=== PATIENT | female | born 1945 | race Caucasian/White ===

== ENCOUNTER → 2024-04-01 09:37 | Outpatient (REF) | payer MEDICARE, OTHER, SELFPAY ==
[2024-04-01 11:38] LABS: % Basophils 0.3 % (0-2); % Eosinophils 2.4 % (0-6); % Immature Granulocytes 0.2 % (0-0.5); % Lymphocytes 17.4 % (20.5-51.1); % Monocytes 9.9 % (1.7-9.3); % Neutrophils 69.8 % (42.2-75.2); Absolute Eosinophils 0.2 10^3/uL (0-0.7); Absolute Lymphocytes 1.1 10^3/uL (1.2-3.4); Absolute Monocytes 0.7 10^3/uL (0.1-0.6); Absolute Neutrophils 4.6 10^3/uL (1.4-6.5); Hematocrit 38.6 % (37.0-47.0); Hemoglobin 12.8 g/dL (12.0-16.0); Mean Corp Hgb Conc. 33.2 g/dL (33.0-37.0); Mean Corpuscular Hgb 30.4 pg (27.0-31.0); Mean Corpuscular Volume 91.7 fL (81.0-99.0); Mean Platelet Volume 10.8 fL (7.4-10.4); Nucleated Red Blood Cells % 0 %; Platelet Count 206 10^3/uL (130-400); Red Blood Cell Count 4.21 10^6/uL (4.20-5.40); Red Cell Dist. Width 12.8 % (11.5-14.5); White Blood Cell Count 6.5 10^3/uL (4.8-10.8)
[2024-04-01 12:07] LABS: ALT (SGPT) 23 U/L (0-35); AST (SGOT) 30 U/L (14-36); Albumin 4.6 g/dl (3.5-5.0); Alkaline Phosphatase 81 U/L (38-126); Blood Urea Nitrogen 33 mg/dl (7-17); Calcium 10.1 mg/dl (8.4-10.2); Carbon Dioxide 23 mmol/L (22-30); Chloride 102 mmol/L (98-107); Glucose 107 mg/dl (70-99); HDL Cholesterol 62 mg/dl; LDL Cholesterol, Calculated 91 mg/dl; Sodium 135 mmol/L (135-145); Total Bilirubin 0.8 mg/dl (0.2-1.3); Total Cholesterol 185 mg/dl (50-199); Total Protein 7.6 g/dl (6.3-8.2); Triglyceride 164 mg/dl (10-149); Very Low Density Lipoprotein 32 mg/dl (0-30)
[2024-04-01 12:21] LABS: Vitamin D, 25-OH*** 38.5 ng/mL (30-80)
[2024-04-02 09:24] LABS: Glycohemoglobin (HgbA1c) 5.6 % (4.0-5.6)
== END ==
LOC: HWLAB 09:37
PROVIDERS: ATTENDING PHYSICIAN Family Medicine
DX: E78.5 Hyperlipidemia, unspecified (principal); R73.01 Impaired fasting glucose; M81.0 Age-related osteoporosis without current pathological fracture; N18.31 Chronic kidney disease, stage 3a
CPT/HCPCS: 36415; 80053; 80061; 82306; 83036; 85025

== ENCOUNTER → 2025-01-23 12:22 | Outpatient (REF) | payer MEDICARE, OTHER, SELFPAY | LOC: HWRAD 12:22 | PROVIDERS: ATTENDING PHYSICIAN Nurse Practitioner Primary Care | DX: S20.212A Contusion of left front wall of thorax, initial encounter (principal); N64.89 Other specified disorders of breast | CPT/HCPCS: 71101 ==

== ENCOUNTER → 2025-07-24 10:17 | Outpatient (REF) | payer MEDICARE, OTHER, SELFPAY ==
[2025-07-24 12:22] LABS: Hematocrit 37.3 % (37.0-47.0); Hemoglobin 12.6 g/dL (12.0-16.0); Mean Corp Hgb Conc. 33.8 g/dL (33.0-37.0); Mean Corpuscular Volume 91.9 fL (81.0-99.0); Nucleated Red Blood Cells % 0 %; Platelet Count 254 10^3/uL (130-400); Red Cell Dist. Width 13.2 % (11.5-14.5)
[2025-07-24 12:36] LABS: ALT (SGPT) 22 U/L (0-35); AST (SGOT) 24 U/L (14-36); Albumin 4.3 g/dl (3.5-5.0); Alkaline Phosphatase 69 U/L (38-126); Blood Urea Nitrogen 29 mg/dl (7-17); Calcium 9.3 mg/dl (8.4-10.2); Carbon Dioxide 23 mmol/L (22-30); Chloride 105 mmol/L (98-107); Glucose 115 mg/dl (70-99); HDL Cholesterol 59 mg/dl; LDL Cholesterol, Calculated 96 mg/dl; Magnesium 2.1 mg/dl (1.6-2.3); Potassium 4.5 mmol/L (3.5-5.1); Sodium 134 mmol/L (135-145); Total Protein 7.7 g/dl (6.3-8.2); Uric Acid 6.8 mg/dl (2.5-6.2); Very Low Density Lipoprotein 34 mg/dl (0-30); eGFR 56.25
[2025-07-24 12:46] LABS: Vitamin D, 25-OH*** 43.5 ng/mL (30-80)
[2025-07-26 17:53] LABS: Aldosterone/Renin Activ Ratio 14.0 ratio (<=25.0); Renin Activity Results 1.2 ng/mL/hr
== END ==
LOC: HWLAB 10:17
PROVIDERS: ATTENDING PHYSICIAN Family Medicine
DX: Z63.4 Disappearance and death of family member (principal); K21.00 Gastro-esophageal reflux disease with esophagitis, without bleeding; E78.5 Hyperlipidemia, unspecified; N18.31 Chronic kidney disease, stage 3a
CPT/HCPCS: 36415; 80053; 80061; 82088; 82306; 82570; 83735; 83970; 84100; 84156; 84244; 84443; 84550; 85025

== ENCOUNTER → 2025-08-16 14:01 | Outpatient (REF) | payer MEDICARE, OTHER, SELFPAY | LOC: HWRAD 14:01 | PROVIDERS: ATTENDING PHYSICIAN Family Medicine; REFERRING PHYSICIAN Specialist | DX: Z63.4 Disappearance and death of family member (principal); N28.1 Cyst of kidney, acquired | CPT/HCPCS: 76770 ==